=== PATIENT | female | born 1980 | race Caucasian/White ===

== ENCOUNTER 2018-04-22 15:41 | Emergency (ER) | payer OTHER ==
[~2018-04-22] VITALS: Ht 154.9 cm; Wt 70.4 kg
[2018-04-22 16:30] VITALS: BP 146/85
--- NOTE | 2018-04-22 16:52 | RAD ---
Indication:Fall, pain at base of thumb TECHNIQUE: 3 views of left hand COMPARISON:None FINDINGS: No acute fracture or dislocation. No joint space narrowing or osteophyte formation suggest arthritic process. No soft tissue abnormality. IMPRESSION: No acute findings. Electronically signed by: Rosendo Jordan DO (04/22/2018 4:47 PM) [facility]
--- NOTE | 2018-04-22 16:58 | PHYS DOC ---
Past History Past Medical History: Asthma Past Surgical History: Tubal ligation Alcohol Use: Occasionally Drug Use: None Adult General Chief Complaint Chief Complaint: MECHANICAL FALL HPI HPI Patient is a 37-year-old female that presents with head and neck pain. Patient states that she fell while scraping ice about an hour ago and hit her head. She tried to brace her fall with her wrist and her left wrist hurts now. She states that she did not lose consciousness, she took Tylenol which has not helped much. She states that the pain is localized to the back of the head and the posterior neck and it hurts worse to try and move her neck. She states that the pain is a 5 out of 10. She denies nausea and vomiting or any vision problems since the fall. Denies . Review of Systems Review of Systems Constitutional: Denies fever or chills [] Eyes: Denies change in visual acuity, redness, or eye pain [] HENT: Denies nasal congestion or sore throat [] Respiratory: Denies cough or shortness of breath [] Cardiovascular: Denies chest pain or palpitations GI: Denies abdominal pain, nausea, vomiting, or diarrhea [] : Denies dysuria or hematuria [] Musculoskeletal: Admits to neck and head pain Integument: Admits to hematoma on the posterior head, denies bleeding Neurologic: Admits to headache, denies focal weakness or sensory changes [] Complete systems were reviewed and found to be within normal limits, except as documented in this note. Allergies Allergies Allergies Coded Allergies Type Severity Reaction Last Updated Verified No Known Drug Allergies 04/22/18 No Physical Exam Physical Exam Constitutional: Well developed, well nourished, no acute distress, non-toxic appearance. [] HENT: Normocephalic, hematoma on the posterior head, negative for ecchymoses, laceration, or bleeding, TMs clear, no epistaxis, no signs of basilar skull fracture Eyes: PERRL, EOMI, conjunctiva normal, no discharge. [] Neck: Decreased range of motion in all directions, tenderness to palpation to paraspinal cervical spine bilaterally, no midline cervical spine tenderness. Cardiovascular: Heart rate regular rhythm, no murmur [] Lungs & Thorax: Bilateral breath sounds clear to auscultation [] Skin: Warm, dry, no erythema, no rash. [] Extremities: Tenderness and decreased range of motion of the right wrist, negative for ecchymoses or swelling Neurologic: Alert and oriented X 3, normal motor function, normal sensory function, no focal deficits noted, Cerebellar function intact Psychologic: Affect normal, judgement normal, mood normal. [] Current Patient Data Vital Signs Vital Signs Date Time Temp Pulse Resp B/P (MAP) Pulse Ox O2 Delivery O2 Flow Rate FiO2 04/22/18 15:41 97.5 92 20 99 Room Air EKG EKG [] Radiology/Procedures Radiology/Procedures PROCEDURE: HAND LEFT 3V Indication:Fall, pain at base of thumb TECHNIQUE: 3 views of left hand COMPARISON:None FINDINGS: No acute fracture or dislocation. No joint space narrowing or osteophyte formation suggest arthritic process. No soft tissue abnormality. IMPRESSION: No acute findings. Electronically signed by: Rosendo Mackenzie DO (04/22/2018 4:47 PM) [facility] DICTATED AND SIGNED BY: ROSENDO MACKENZIE DO DATE: 04/22/18 1645 Course & Med Decision Making Course & Med Decision Making Pertinent Imaging studies reviewed. (See chart for details) Patient is a 37-year-old female that presents after a fall today. History of present illness and physical exam was concerning for right wrist fracture. 3 view wrist x-ray was negative for fractures or acute pathology. Patient was advised to follow rest, ice, compression, and elevation. Pain management was addressed. Patient also reports head contusion. NO signs of basilar skull fracture. Denies use of blood thinners. Patient neurologically intact. Patient stable for discharge with outpatient follow-up with PCP. Discussed findings and plan with patient and family, who acknowledge understanding and agreement. Dragon Disclaimer Dragon Disclaimer This electronic medical record was generated, in whole or in part, using a voice recognition dictation system. Departure Departure: Impression: Primary Impression: Traumatic hematoma of scalp Additional Impressions: Hand contusion Neck pain Disposition: 01 HOME, SELF-CARE Condition: STABLE Referrals: YONIS CHAVEZ (PCP) Patient Instructions: Contusion, [id number], Head Injury, Adult, [id number] , Scalp Hematoma Scripts Orphenadrine Citrate (ORPHENADRINE CITRATE) 100 Mg Tablet.er 1 TAB PO BID PRN for MUSCLE PAIN, #14 TAB 0 Refills Prov: JUAN PABLO BYRD DO 04/22/18 Naproxen (NAPROXEN) 500 Mg Tablet. 1 TAB PO Q12HR PRN for PAIN, #20 TAB 0 Refills Prov: JUAN PABLO BYRD DO 04/22/18 Splinting Splinting : Location: left wrist/hand Pre-Made Type: DRAKE bandage Pre-Proc Neuro Vasc Exam: normal Post-Proc Neuro Vasc Exam: normal, unchanged from pre-exam Problem Qualifiers Primary Impression: Traumatic hematoma of scalp Encounter type: initial encounter Qualified Codes: S00.03XA - Contusion of scalp, initial encounter Additional Impressions: Hand contusion Encounter type: initial encounter Laterality: left Qualified Codes: S60.222A - Contusion of left hand, initial encounter JUAN PABLO BYRD DO Apr 22, 2018 16:58
[2018-04-22] MEDS ORDERED: ORPH-16 PO (17:08)
[2018-04-22] MEDS ORDERED: NAPR500T8 PO (17:08)
== END 2018-04-22 17:10 | disposition home or self-care (01) ==
LOC: ER 15:41
DX: S00.03XA Contusion of scalp, initial encounter (principal); S10.93XA Contusion of unspecified part of neck, initial encounter; M25.532 Pain in left wrist; J45.909 Unspecified asthma, uncomplicated; W18.30XA Fall on same level, unspecified, initial encounter; Y93.89 Activity, other specified; Y92.89 Other specified places as the place of occurrence of the external cause; Y99.8 Other external cause status
CPT/HCPCS: 73130; 99283